=== PATIENT | female | born 1960 | race Caucasian/White ===

== ENCOUNTER 2017-01-11 20:56 | Emergency (ER) | payer OTHER ==
[2017-01-11 21:10] VITALS: BP 124/76; PULSE 64; TEMP 97.9; BMI 36.3
--- NOTE | 2017-01-11 22:26 | PDOC ---
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 FALL ONTO SAME THIS PM Occurred: reports: this afternoon Severity: reports: moderate Pain Location: reports: lower extremity (LEFT KNEE) Method of Injury: Yes: fall Past History - Past Medical History Allergies/Adverse Reactions: Allergies Allergy/AdvReac Type Severity Reaction Status Date / Time No Known Allergies Allergy Verified 01/11/17 21:08 Home Medications: Ambulatory Orders Atorvastatin Ca [Lipitor -] 40 mg PO DAILY 10/16/13 Metformin HCl [Glucophage -] 500 mg PO DAILY 10/16/13 Quinapril/Hydrochlorothiazide [Accuretic 20-25 mg Tablet] 1 each PO DAILY Anemia: No Asthma: No Cancer: No Cardiac Disorders: No CVA: No COPD: No CHF: No Dementia: No Diabetes: Yes GI Disorders: No Disorders: No HTN: Yes Hypercholesterolemia: Yes Liver Disease: No Seizures: No Thyroid Disease: No - Surgical History Abdominal Surgery: No Appendectomy: No Cardiac Surgery: No Cholecystectomy: No Lung Surgery: No Neurologic Surgery: No Orthopedic Surgery: No - Immunization History Td Vaccination: Yes TDAP Vaccination: Yes Immunization Up to Date: Yes - Psycho/Social/Smoking Cessation Hx Anxiety: No Suicidal Ideation: Yes Smoking Status: Yes Smoking History: Never smoked Have you smoked in the past 12 months: No Number of Cigarettes Smoked Daily: 0 Information on smoking cessation initiated: No Hx Alcohol Use: No Drug/Substance Use Hx: No Substance Use Type: None Hx Substance Use Treatment: No Review of Systems - Review of Systems Constitutional: No: Chills, Fever Respiratory: No: Symptoms reported, Cough Musculoskeletal: Yes: Other (TENDER ANTERIOR LEFT KNEE) Integumentary: Yes: Other (LOTS OF VARICOSE VEINS) Neurological: No: Symptoms reported *Physical Exam - Vital Signs Last Vital Signs Temp Pulse Resp BP Pulse Ox 97.9 F 64 18 124/76 100 01/11/17 21:04 01/11/17 21:04 01/11/17 21:04 01/11/17 21:04 01/11/17 21:04 - Physical Exam General Appearance: No: Appropriately Dressed, Apparent Distress Respiratory/Chest: negative: Lungs Clear Musculoskeletal: positive: Other (TENDER TO ANTERIOR LEFT KNEE; NORMAL ROM; PATELLA, NOR QUAD TENDON; STS) ED Treatment Course - RADIOLOGY Radiology Studies Ordered: Category Date Time Status KNEE 2 POS-LEFT [RAD] Stat Radiology 01/11/17 22:16 Ordered Medical Decision Making - Medical Decision Making 01/11/17 22:49 SUGESTED FOLLOW UP WITH dR Cruz END OF WEEK; HAD TKR X 2 YEARS AGO ON RIGHT KNEE *DC/Admit/Observation/Transfer Diagnosis at time of Disposition: Strain of left knee Qualifiers: Encounter type: initial encounter Qualified Code(s): S86.912A - Strain of unspecified muscle(s) and tendon(s) at lower leg level, left leg, initial encounter - Discharge Dispostion Disposition: HOME Condition at time of disposition: Stable Admit: No - Referrals Referrals: Breezy Acosta MD [Primary Care Provider] - Zhao Cruz MD [Staff Physician] - - Patient Instructions Additional Instructions: SEE DR CRUZ THIS WEEK; REST; [facility] - Post Discharge Activity Work/School Note: Back to Work
== END 2017-01-11 23:04 | disposition home or self-care (01) ==
LOC: JERFT 20:56 → JER 20:56 → JERFT 23:04
DX: S86.912A Strain of unspecified muscle(s) and tendon(s) at lower leg level, left leg, initial encounter (principal); W19.XXXA Unspecified fall, initial encounter; Y93.9 Activity, unspecified; Y92.9 Unspecified place or not applicable
CPT/HCPCS: 73560-TC-LT; 99281-25

== ENCOUNTER 2017-11-01 11:43 | Day surgery (SDC) | payer OTHER ==
[2017-10-27 09:02] VITALS: BMI 36.1
[2017-11-01] MEDS ORDERED: CELECOXIB 200 MG CAPSULE ONE (12:11)
[2017-11-01] MEDS ORDERED: GABAPENTIN 300 MG CAPSULE (FP) ONE (12:11)
[2017-11-01] MEDS ORDERED: oxyCODONE HCL 10 MG SUSTAINED ACTING TABLET ONE (12:11)
[2017-11-01] MEDS ORDERED: GABAPENTIN 300 MG CAPSULE (FP) PO ONE (12:28)
[2017-11-01] MEDS ORDERED: ROPIVICAINE 0.2%/MORPH PF/KETOROLAC - 51ML DISP.SYRINGE IA ONE (12:28)
[2017-11-01] MEDS ORDERED: oxyCODONE HCL 10 MG SUSTAINED ACTING TABLET PO ONE (12:28)
[2017-11-01] MEDS ORDERED: CEFAZOLIN 2 GM/D5W 2 GM/50 ML ML IVPB ONE (12:28)
[2017-11-01] MEDS ORDERED: TRANEXAMIC ACID 1000 MG/10 ML VIAL IVPUSH ONE (12:28)
[2017-11-01] MEDS ORDERED: CELECOXIB 200 MG CAPSULE PO ONE (12:28)
--- NOTE | 2017-11-01 13:16 | HP ---
[facility] - Chief Complaint Chief Complaint: left knee pain - Past Medical History Allergies/Adverse Reactions: Allergies Allergy/AdvReac Type Severity Reaction Status Date / Time No Known Allergies Allergy Verified 10/27/17 08:56 - Current Medications Current Medications: Home Medications Medication Instructions Recorded Atorvastatin Ca [Lipitor -] 40 mg PO DAILY 10/16/13 Quinapril/Hydrochlorothiazide 1 each PO DAILY 10/16/13 [Accuretic 20-25 mg Tablet] metFORMIN HCL [Glucophage -] 500 mg PO DAILY 10/16/13 [facility] Physical Exam - Physical Examination Vital Signs: Vital Signs Period Temp Pulse Resp BP Sys/Childs Pulse Ox Last 24 Hr 97.6 F 68 20 141/83 98 General Appearance: Well Nourished, Well Developed, Alert & Oriented x3 ENT: Clear Lung: Normal air movement Heart: Regular rate & rhythm Extremities: Other (left knee- +swelling, +ttp medially, decr rom, nvi xrays show grade 4 medial compartment djd) Neurological: Intact, Alert, Oriented [facility] Impression/Plan - Impression/Plan Impression: left knee medial djd Operative Procedure: left medial oxana ukr Date to be Performed: 11/01/17
[2017-11-01] MEDS ORDERED: DEXAMETHASONE SOD PHOSPHATE/PF 10 MG/ML SDV ONE (13:41)
[2017-11-01] MEDS ORDERED: BUPIVACAINE HCL/PF (5 MG/ML) 30 ML VIAL IJ ONE (13:42)
[2017-11-01] MEDS ORDERED: MIDAZOLAM HCL 2 MG/2 ML SINGLE DOSE VIAL ONE ×2 (13:42→14:33)
[2017-11-01] MEDS ORDERED: PROPOFOL 20 ML ONE ×2 (14:31→15:02)
[2017-11-01] MEDS ORDERED: ceFAZolin SODIUM 1 GM VIAL ONE (14:33)
[2017-11-01] MEDS ORDERED: THROMBIN (BOVINE) 5,000 UNIT VIAL TP ONE (14:33)
[2017-11-01] MEDS ORDERED: ONDANSETRON 4 MG/2 ML VIAL IVPUSH PRN ×2 (17:01→17:25)
[2017-11-01] MEDS ORDERED: MAG HYDROX/AL HYDROX/SIMETH 30 ML UNIT-DOSE CUP PO PRN (17:01)
--- NOTE | 2017-11-01 17:04 | OP ---
Operative Note - Note: Operative Date: 11/01/17 (jorge) Pre-Operative Diagnosis: left knee medial djd Operation: left medial oxana ukr Post-Operative Diagnosis: Same as Pre-op Surgeon: Derek Schuler Commercial Lines Manager: Chaz Don Anesthesia: Spinal, Local Specimens Removed: bone fragments Estimated Blood Loss (mls): 100 Operative Report Dictated: Yes
[2017-11-01] MEDS ORDERED: PROMETHAZINE HCL 25 MG/1 ML VIAL IVPUSH PRN (17:25)
[2017-11-01] MEDS ORDERED: oxyCODONE HCL 5 MG TABLET PO PRN ×2 (17:25→21:58)
[2017-11-01] MEDS: LACTATED RINGERS SOLUTION 1,000 ML IV SCH ×2 (19:00→19:50)
[2017-11-01] MEDS: SENNOSIDES/DOCUSATE COMBO (SENNA PLUS) TABLET (UD) PO SCH (21:40)
[2017-11-01] MEDS ORDERED: ATORVASTATIN CA 40 MG TABLET (FP) PO SCH (22:00)
[2017-11-01] MEDS: INSULIN SLIDING SCALE (NOVOLOG) 1 VIAL SQ SCH (22:05)
[2017-11-01] MEDS ORDERED: INSULIN (NOVOLOG) ASPART 100 UNITS/ML 10ML VIAL ONE (22:07)
[2017-11-01] MEDS: ACETAMINOPHEN 325 MG TABLET (FP) PO SCH (22:34)
[2017-11-01] MEDS: CEFAZOLIN 2 GM/D5W 2 GM/50 ML ML IVPB SCH (23:46)
[2017-11-02] MEDS: ACETAMINOPHEN 325 MG TABLET (FP) PO SCH ×2 (06:14→10:55)
[2017-11-02 06:18] VITALS: BP 110/59; PULSE 60; TEMP 98.5
[2017-11-02] MEDS: CEFAZOLIN 2 GM/D5W 2 GM/50 ML ML IVPB SCH (06:51)
[2017-11-02] MEDS ORDERED: metFORMIN HCL 500 MG TABLET (FP) PO SCH (07:00)
[2017-11-02] MEDS: INSULIN SLIDING SCALE (NOVOLOG) 1 VIAL SQ SCH ×2 (07:47→11:56)
[2017-11-02] MEDS ORDERED: ASPIRIN 325 MG TABLET PO SCH (08:00)
--- NOTE | 2017-11-02 09:49 | SPEC ---
DATE OF OPERATION: 11/01/2017 PREOPERATIVE DIAGNOSIS: Left knee medial compartment osteoarthritis. POSTOPERATIVE DIAGNOSIS: Left knee medial compartment osteoarthritis. PROCEDURE: Left knee medial MAKOplasty/partial knee replacement. SURGEON: William Hay MD CUSTOMER COMPLAINT CLERK: Zhao Cruz MD and LUZ Kam ANESTHESIOLOGIST: Moe Gao MD BLOOD LOSS: 50 mL BLOOD GIVEN: None. FLUID REPLACEMENT: 500 mL Plasmalyte. DRAINS: None. COMPLICATIONS: None. INDICATIONS: After understanding the potential risks, complications, alternatives and benefits of surgery versus nonsurgical treatment, the patient elected to undergo this procedure. The patient understands that there is a lifelong risk of infection. Patient may need a revision surgery which would require removal of the implant. Patient may require conversion to a total knee replacement. Patient may have some continued pain from osteoarthritis in either the patellofemoral joint or the lateral compartment. DESCRIPTION OF PROCEDURE: The patient was brought into the operating room, peripheral IV placed and IV sedation given. One gram of IV Ancef was given. Spinal anesthesia was induced. Patient was placed into the supine position. Ample Webril was placed on the left upper thigh. Tourniquet was applied. The left lower extremity was prepped and draped in the usual sterile fashion. The preoperative CT scan, the computer, and the robot were brought into position. The two femoral Jayda pins were placed by making the appropriate measurement and then using a No. 15 scalpel blade to cut through the skin and a hemostat to dissect down to the anterior aspect of the femur and the anterior aspect of the tibia. The tibia and femoral arrays were placed. A 3.5-inch incision was made along the medial aspect of the knee joint, patella and proximal tibia. Subcutaneous hemostasis was achieved with the Bovie cautery. Dissection was done with the Bovie down to the knee retinaculum which was incised, the thick synovial fluid evacuated. There were some osteophytes on the medial aspect of the patella which were debrided with the rongeur. After the patelloplasty, some small bleeders were cauterized and Hohmann retractors were placed to retract the medial soft tissues on the proximal aspect of the tibia and some mild amount of periosteal dissection was performed. Once this was done, exposing the proximal and medial tibia and the proximal and medial femur, the two positioning buttons were placed. Next, using the green sensor, we began positioning with both the medial and lateral malleolus and then putting the knee through progressively larger circles in a clockwise direction, gaining location data with the femoral and tibial array. Next, we did a medial meniscectomy and correlated the femoral and tibial positions with the positioner and the buttons. Next, we registered 40 points of position with a combination of the handheld registration device and the arrays in the computer. Once this was done, we put the knee through a range of motion. The patient had a small varus forming and a small flexion contraction both of which were corrected, taking multiple measurements including at 0 degrees, 30 degrees, 60 degrees, 90 degrees and 120 degrees. Once this was done and we evaluated the flexion and extension tension graphs and it was seen to be quite good and I was quite happy with the tension throughout the full range of motion. No other adjustments were needed to be made. This was a size No. 3 medial femur and size No. 3 medial tibial component with an 8mm polyethylene tray. We locked in the prosthesis size combination, and began our resection. The robot was brought into place. Registration was done. Using the standard Makoplasty technique, I was able to use a round guido to take out the appropriate amount of bone from the distal femur and the proximal tibia. The area was copiously irrigated and washed out. A rongeur was used to take away some marginal osteophytes and overhanging cartilage. It all looked quite good; it was quite smooth. I saw no reason for any additional resection. We then put the leg up, applied the tourniquet to 300 mmHg. We used Thrombin-soaked Gelfoam on the bony beds for hemostasis and then a dry lap pad. We mixed one bag of Simplex cement. We opened the real prosthesis, which would be the Makoplasty medial femur No. 3 and the medial Makoplasty tibial No. 3. These were precoated on their undersurface with cement. The Thrombin-soaked Gelfoam was removed, the area copiously irrigated and washed out, dried, and cement placed into the holes and onto the bone, first of the femur. The femoral component was applied, tapped into place. The excess cement was removed and then the same procedure for the tibia. Once the excess cement was all removed, I put in a No. 8 trial polyethylene tray and put the knee into extension for more compression. I was able to put the knee through a full range of motion, achieving full extension, full flexion well past 100 degrees overall. I was quite happy with the position of the prosthesis. We let it dry. Excess cement was removed. Again, it was tested, seen to be quite good and therefore, a real polyethylene tray was placed in the knee. Once this was done, the area was copiously irrigated and washed out again. A Hemovac drain was placed. The deep knee retinaculum was repaired with No. 1 Tycron suture, 2-0 Vicryl sutures to close the deep dermal layer. Final skin reapproximation was done with a running subcuticular 3-0 V-Loc suture. 3-0 nylon was used to close the proximal and distal holes where the Steinmann pins were for the femoral and tibial arrays. The area was copiously irrigated and washed out, covered in Xeroform. A cocktail of Morphine and Bupivacaine was injected in and around the soft tissue of the knee. The main incision was covered with Steri strips as well. The area was also covered with 4 x 4 gauze, ample Webril, ABDs, and Mega bandages. The tourniquet was taken down after only being up for 25 minutes. Total operative time was 1 hour. There were no complications during the case. The patient tolerated the procedure quite well and was brought to the regular recovery room in stable condition. WILLIAM HAY M.D. [id number]
--- NOTE | 2017-11-02 09:55 | PN ---
Progress Note, Physician Chief Complaint: day #1 s/p left medial knee replacement - Current Medication List Current Medications: Active Medications Acetaminophen (Tylenol -) 650 mg PO Q6H [facility] Stop: 11/04/17 21:59 Last Admin: 11/02/17 06:14 Dose: Not Given Al Hydroxide/Mg Hydroxide (Mylanta Oral Suspension -) 30 ml PO Q4H PRN PRN Reason: DYSPEPSIA Aspirin (Asa -) 325 mg PO DAILY@0800 [facility] Atorvastatin Calcium (Lipitor -) 40 mg PO HS [facility] Last Admin: 11/01/17 21:40 Dose: 40 mg Hydrochlorothiazide (Hctz -) 25 mg PO DAILY [facility] Insulin Aspart (Novolog Vial Sliding Scale -) 1 vial SQ ACHS [facility]; Protocol Last Admin: 11/02/17 07:47 Dose: Not Given Metformin HCl (Glucophage -) 500 mg PO 0700 [facility] Last Admin: 11/02/17 06:51 Dose: 500 mg Multivitamins/Minerals/Vitamin C (Tab-A-Vit -) 1 tab PO DAILY [facility] Ondansetron HCl (Zofran Injection) 4 mg IVPUSH Q6H PRN PRN Reason: NAUSEA Oxycodone HCl (Roxicodone -) 5 mg PO Q4H PRN PRN Reason: PAIN LEVEL 1-5 Oxycodone HCl (Roxicodone -) 10 mg PO Q3H PRN PRN Reason: PAIN LEVEL 6-10 Pantoprazole Sodium (Protonix -) 40 mg PO DAILY [facility] Quinapril HCl (Accupril -) 20 mg PO DAILY [facility] Senna/Docusate Sodium (Pericolace -) 2 tablet PO BID [facility] Last Admin: 11/01/17 21:40 Dose: 2 tablet - Objective Vital Signs: Vital Signs Temperature 98.5 F 11/02/17 06:17 Pulse Rate 60 11/02/17 06:17 Respiratory Rate 20 11/02/17 06:17 Blood Pressure 110/59 11/02/17 06:17 O2 Sat by Pulse Oximetry (%) 98 11/02/17 08:39 Assessment/Plan Pt doing well, OOB to chair. Minimal pain, her only complaint is some tingling/ numbness, which she was informed is to be expected.
[2017-11-02] MEDS ORDERED: PANTOPRAZOLE 40 MG TABLET (FP) PO SCH (10:00)
[2017-11-02] MEDS ORDERED: QUINAPRIL HCL 20 MG TABLET (FP) PO SCH (10:00)
[2017-11-02] MEDS ORDERED: MULTIVITAMINS (DAILY MVI) TABLET (FP) PO SCH (10:00)
[2017-11-02] MEDS ORDERED: QUINAPRIL PO SCH (10:00)
[2017-11-02] MEDS ORDERED: HYDROCHLOROTHIAZIDE PO SCH (10:00)
[2017-11-02] MEDS ORDERED: HYDROCHLOROTHIAZIDE 25 MG TABLET (FP) PO SCH (10:00)
[2017-11-02] MEDS ORDERED: [UNRECOGNIZED DRUG - OTHER] PO SCH (10:00)
[2017-11-02] MEDS: SENNOSIDES/DOCUSATE COMBO (SENNA PLUS) TABLET (UD) PO SCH (10:17)
--- NOTE | 2017-11-02 12:21 | PN ---
Progress Note (short form) - Note Progress Note: Ortho Pt seen and examined s/p left medial oxana tkr pod #1 Selected Entries 11/02/17 06:17 Temperature 98.5 F Pulse Rate 60 Respiratory 20 Rate Blood Pressure 110/59 dressing c/d/i, calf soft, nt rom 0-90, nvi a/p PT dvt ppx pain control d/c home today f/u in 1 week
--- NOTE | 2017-11-02 12:22 | DS ---
Physical Examination Vital Signs: Vital Signs Temperature 98.5 F 11/02/17 06:17 Pulse Rate 60 11/02/17 06:17 Respiratory Rate 20 11/02/17 06:17 Blood Pressure 110/59 11/02/17 06:17 O2 Sat by Pulse Oximetry (%) 98 11/02/17 08:39 Discharge Summary Reason For Visit: OSTEOARTHRITIS Procedures: Principal: s/p left medial oxana ukr Hospital Course: admitted for elective left medial oxana ukr, uneventful post-op, stable for d/c Condition: Good - Instructions Diet, Activity, Other Instructions: Post-op Instructions-Partial Knee Replacement Call the office for a follow-up appointment in 1 week - [phone] Aspirin 325mg daily for 6 weeks. Pain medication was sent into your pharmacy. Apply Graduated Compression Stockings (TEDs) to both lower extremities- remove daily for hygiene ONLY Apply Sequential Compression Device (SCDs) to both Lower extremities remove for PT and hygiene ONLY Apply cold packs to affected area for 15 minutes every 2 hours. Physical Therapist will come to your home for the first 5 days. You will be set up with outpatient PT at your first post-operative visit. Patient may ambulate as tolerated-encourage self care (at least every 2-3 hours while awake) with walker or cane Maintain Aquacel (waterproof) dressing to operative wound (will be removed by surgeon at first office visit) Shower with Aquacel dressing in place-if Aquacel integrity compromised, remove and apply dry sterile dressing and notify Orthopedist. DO NOT SHOWER unless Orthopedists approves without Aquacel dressing CONTACT THE OFFICE FOR ANY CHANGE IN YOUR CONDITION (for example-fever greater than 102 degrees, excessive bleeding from operative site, purulent drainage, severe swelling or pain) GO TO THE EMERGENCY ROOM IF THERE IS A MEDICAL EMERGENCY Knee Precautions: * Keep a rolled towel under affected heel while in bed or chair (to keep knee in extension) * Keep affected leg elevated except during mealtimes * DO NOT PLACE PILLOW UNDER AFFECTED KNEE * If you have any questions, please do not hesitate to call the office - . Referrals: Derek Schuler MD [Staff Physician] - Disposition: VNS/HOME HEALTH CARE - Home Medications Comprehensive Discharge Medication List: Ambulatory Orders Atorvastatin Ca [Lipitor] 40 mg PO DAILY 10/16/13 Quinapril/Hydrochlorothiazide [Accuretic 20-25 mg Tablet] 1 each PO DAILY metFORMIN HCL [Glucophage -] 500 mg PO DAILY 10/16/13 Aspirin [ASA -] 325 mg PO DAILY@0800 tablet 11/01/17 Oxycodone HCl/Acetaminophen [Percocet 5-325 mg Tablet -] 1 - 2 tab PO Q6H #50 tab MDD 8 11/01/17
== END 2017-11-02 12:40 | disposition home health service (06) ==
LOC: FASU 11:43 → FM/S 18:06 → FASU 11-02 12:40
PROVIDERS: ATTEND Orthopaedic Surgery
PROC: 8E0YXBZ Computer Assisted Procedure of Lower Extremity (ICD-10-PCS; 2017-11-01)
PROC: 8E0Y0CZ Robotic Assisted Procedure of Lower Extremity, Open Approach (ICD-10-PCS; 2017-11-01)
PROC: 0SRD0L9 Replacement of Left Knee Joint with Medial Unicondylar Synthetic Substitute, Cemented, Open Approach (ICD-10-PCS; principal; 2017-11-01 15:40)
DX: M17.12 Unilateral primary osteoarthritis, left knee (principal)
CPT/HCPCS: 20985; 27446; C1776; S2900; 73560-TC-LT-FY; 82962; 94760; 97116-GP; 97162-GP